=== PATIENT | female | born 1960 | race Caucasian/White ===

== ENCOUNTER 2018-08-11 08:11 | Day surgery (SDC) | payer OTHER ==
[2018-08-11] MEDS: SOD CHLORIDE 0.9% 1,000 ML IV (09:00)
[2018-08-11] MEDS: FENTAnyl 50 MCG/ML VIAL (10:37)
[2018-08-11] MEDS: LIDOCAINE 1% (MPF) 5 ML VIAL ×2 (10:38→10:41)
[2018-08-11] MEDS: MIDAZOLAM 1 MG/ML 2 ML INJ (10:39)
== END 2018-08-11 13:21 | disposition home or self-care (01) ==
LOC: SDS 08:11
DX: D47.9 Neoplasm of uncertain behavior of lymphoid, hematopoietic and related tissue, unspecified (principal); Z85.72 Personal history of non-Hodgkin lymphomas; I10 Essential (primary) hypertension; E78.5 Hyperlipidemia, unspecified
CPT/HCPCS: 38221; 77012; 88305; 88311; 88313; 88341; 88342